=== PATIENT | male | born 1930 | race Caucasian/White ===

== ENCOUNTER 2016-12-20 15:47 | Emergency (ER) | payer OTHER ==
--- NOTE | 2016-12-20 15:50 | PDOC ---
History of Present Illness - General History Source: Patient Exam Limitations: No Limitations - History of Present Illness Initial Comments: 12/20/16 16:16 The patient is an 86 year old male, with significant past medical history of CAD , Afib (on 4mg coumadin), Stroke (2000), HTN, HLD, prostate cancer s/p radiation therapy 2004, throat cancer, bladder cancer, who was sent to the ER today by Dr. Ferny Zhu at [facility] because he had an elevated INR of 4.87. The patient has been on Coumadin for about 20 years and this has happened to him in the past. He denies hematuria and hematochezia. He denies recent falls or trauma. He denies any bruising or injuries. The patient does not have any complaints at this time. Allergies: none reported Social Hx: Previous tobacco use. PCP- Dr. Torsten Medina <Dee Pollock - Last Filed: 12/20/16 16:22> - General History Source: Patient Exam Limitations: No Limitations <Arabella Szymanski - Last Filed: 12/21/16 08:40> - General Chief Complaint: Revisit, Lab Variance Stated Complaint: ELEVATED INR,ON COUMADINE Time Seen by Provider: 12/20/16 15:49 Past History <Dee Pollock - Last Filed: 12/20/16 16:22> <Arabella Szymanski - Last Filed: 12/21/16 08:40> - Past Medical History Allergies/Adverse Reactions: Allergies Allergy/AdvReac Type Severity Reaction Status Date / Time No Known Allergies Allergy Verified 12/20/16 15:51 Home Medications: Ambulatory Orders Alprazolam [Xanax] 0.125 mg PO BID PRN 12/20/16 Atorvastatin Ca [Lipitor] 40 mg PO HS 12/20/16 Cholecalciferol (Vitamin D3) [Vitamin D3] 50,000 unit PO WEEKLY 12/20/16 Escitalopram Oxalate [Lexapro -] 20 mg PO DAILY 12/20/16 Levothyroxine [Synthroid -] 100 mcg PO DAILY 12/20/16 Pantoprazole Sodium [Protonix] 40 mg PO DAILY 12/20/16 Silodosin [Rapaflo] 8 mg PO DAILY 12/20/16 Warfarin Sodium [Coumadin] 4 mg PO HS 12/20/16 Review of Systems - Review of Systems Able to Perform ROS?: Yes Comments:: 12/20/16 16:19 GENERAL/CONSTITUTIONAL: No: fever, chills, weakness, loss of appetite. HEAD, EYES, EARS, NOSE AND THROAT: No: change in vision, ear pain, discharge, sore throat, throat swelling. CARDIOVASCULAR: No: chest pain, lightheadedness, palpitations, syncope RESPIRATORY: No: cough, shortness of breath, wheezing, hemoptysis, stridor. GASTROINTESTINAL: No: nausea, vomiting, abdominal cramping, diarrhea, rectal bleeding, constipation. GENITOURINARY: No: dysuria, hematuria, frequency, urgency, flank pain. MUSCULOSKELETAL: No: back pain, neck pain, joint pain, muscle swelling or pain SKIN: No: lesions, pallor, rash or easy bruising. NEUROLOGIC: No: headache, vertigo, paresthesias, weakness ENDOCRINE: No: unexplained weight gain or loss HEMATOLOGIC/LYMPHATIC: No: anemia, easy bleeding, swelling nodes <Dee Pollock - Last Filed: 12/20/16 16:22> *Physical Exam - Vital Signs Last Vital Signs Temp Pulse Resp BP Pulse Ox 97.5 F L 64 16 128/74 97 12/20/16 15:48 12/20/16 15:48 12/20/16 15:48 12/20/16 15:48 12/20/16 15:48 - Physical Exam Comments: 12/20/16 16:19 GENERAL: The patient is in no acute distress. HEAD: Normal with no signs of trauma. EYES: PERRLA, EOMI, sclera anicteric, conjunctiva clear. ENT: Ears normal, nares patent, oropharynx clear without exudates. Moist mucous membranes. NECK: Normal range of motion, supple without lymphadenopathy, JVD, or masses. LUNGS: Breath sounds equal, clear to auscultation bilaterally. No wheezes, and no crackles. HEART:Irregularly irregular rhythm, normal rate, normal S1 and S2 without murmur , rub or gallop. ABDOMEN: Soft, nontender, normoactive bowel sounds. No guarding, no rebound. EXTREMITIES: Normal range of motion, no edema. No clubbing or cyanosis. No erythema, or tenderness. NEUROLOGICAL: Cranial nerves II through XII grossly intact. Normal speech. No focal neurological deficits. MUSCULOSKELETAL: Back nontender to palpation, no CVA tenderness SKIN: Warm, Dry, normal turgor, no rashes or lesions noted. <Dee Pollock - Last Filed: 12/20/16 16:22> ED Treatment Course - LABORATORY CBC & Chemistry Diagram: 12/20/16 16:14 12/20/16 16:14 <Arabella Szymanski - Last Filed: 12/21/16 08:40> Medical Decision Making - Medical Decision Making 12/20/16 15:50 A portion of this note was documented by scribe services under my direction. I have reviewed the details of the note, within reason, and agree with the documentation with the following case summary and management plan written by me. Nursing documentation reviewed and incorporated into medical decision making This is an 86 yo M h/o Afib (on coumadin), HTN, CAD, cancer (being worked up for bladder cancer) Pt was in [facility] today for pre op testing Was called this afternoon and told that he must go to the nearest hospital as his INR is 4.9 Pt denies abdominal pain, rectal bleeding, melena, Hematuria, nausea or vomiting Will repeat labs Will contact physician which was doing his work up 12/20/16 17:20 Laboratory Tests 12/20/16 12/20/16 16:14 16:14 WBC 5.9 Hgb 12.9 Hct 40.1 Plt Count 227 Neutrophils % 73.9 Lymphocytes % 16.2 INR 4.92 H* 12/20/16 17:40 Pt PMD called PMD will monitor INR Will discharge to home Pt already knows that he has to hold his coumadin for 5 days before his surgery He will hold his coumadin tonight <Arabella Szymanski - Last Filed: 12/21/16 08:40> *DC/Admit/Observation/Transfer - Attestations Scribe Attestion: 12/20/16 16:20 Documentation prepared by KURT Hooper, acting as medical technologist chief for Arabella Szymanski MD. <Dee Pollock - Last Filed: 12/20/16 16:22> - Discharge Dispostion Admit: No <Arabella Szymanski - Last Filed: 12/21/16 08:40> Diagnosis at time of Disposition: Supratherapeutic international normalized ratio (INR) - Discharge Dispostion Disposition: HOME Condition at time of disposition: Stable - Patient Instructions Printed Discharge Instructions: Warfarin Additional Instructions: MR. MISHRA Please hold your coumadin tonight Please follow up with your primary doctor tomorrow for re evaluation of your INR Please return to the ER for any other concerns or complaints and especially any signs of bleeding or bruising
[2016-12-20 16:05] VITALS: BP 128/74; PULSE 64; TEMP 97.5; BMI 26.6
[2016-12-20 16:52] LABS: BASOPHIL 0.9 % (0-2.0); EOSINOPHIL 1.1 % (0-4.5); MCH 28.1 pg (25.7-33.7); MCHC 32.2 g/dl (32.0-35.9); MEAN CELL VOLUME 87.3 fl (80-96); MEAN PLT VOLUME 8.8 fl (7.5-11.1); NEUTROPHILS 73.9 % (42.8-82.8); PLATELET COUNT 227 K/MM3 (134-434); RDW 16.1 % (11.9-15.9); WHITE BLOOD COUNT 5.9 K/mm3 (4.0-10.8)
[2016-12-20 17:03] LABS: PROTHROMBIN TIME (PATIENT) 53.4 SEC (10.2-13.0)
[2016-12-20 17:07] LABS: INR 4.92 (0.82-1.09)
[2016-12-21 01:15] LABS: CALCIUM 8.7 mg/dL (8.5-10.1); COCKROFT - GAULT 58.9
== END 2016-12-20 17:48 | disposition home or self-care (01) ==
LOC: FER 15:47
DX: R79.9 Abnormal finding of blood chemistry, unspecified (principal); Z79.01 Long term (current) use of anticoagulants; I10 Essential (primary) hypertension; E78.5 Hyperlipidemia, unspecified; I48.91 Unspecified atrial fibrillation; Z86.73 Personal history of transient ischemic attack (TIA), and cerebral infarction without residual deficits
CPT/HCPCS: 36415; 80048; 85025; 85610; 99282-25